=== PATIENT | male | born 1940 | race Caucasian/White ===

== ENCOUNTER 2017-07-06 13:39 | Inpatient (IN) ==
[2017-07-06] MEDS ORDERED: ACETAMINOPHEN 325 MG TABLET PO PRN (15:03)
[2017-07-06] MEDS ORDERED: ONDANSETRON 4 MG/2 ML VIAL IV PRN (15:03)
[2017-07-06] MEDS ORDERED: DEXTROSE 50% 25 GM/50 ML VIAL IV PRN (15:06)
[2017-07-06] MEDS ORDERED: GLUCAGON 1 MG VIAL IM PRN (15:06)
[2017-07-06] MEDS ORDERED: ENOXAPARIN 40 MG/0.4 ML SYRINGE SUBCUT SCH (17:30)
[2017-07-06] MEDS: INSULIN LISPRO 100 UNIT/ML SUBCUT SCH (18:48)
[2017-07-06] MEDS: FUROSEMIDE 20 MG/2 ML VIAL IV SCH (18:50)
[2017-07-06] MEDS ORDERED: hydrALAZINE 20 MG/1 ML VIAL IV PRN (19:19)
[2017-07-06] MEDS ORDERED: ALBUTEROL/IPRATROPIUM 3 ML NEB RESP TX PRN (19:19)
[2017-07-06 19:36] LABS: Free T4 (Free Thyroxine) 0.98 NG/DL (0.76-1.46)
[2017-07-06 19:38] LABS: Troponin I Only 0.198 NG/ML (0.00-0.045)
[2017-07-07] MEDS: INSULIN LISPRO 100 UNIT/ML SUBCUT SCH ×5 (03:06→21:41)
[2017-07-07] MEDS: DOCUSATE SODIUM 100 MG CAPSULE PO SCH ×3 (03:06→21:41)
[2017-07-07 04:07] LABS: Basophils % 0.4 % (0.0-0.8); Eosinophils # 0.2 10*3/uL (0.0-0.87); Eosinophils % 2.7 % (0.00-10.9); Hematocrit 35.6 VOL% (42.0-52.0); Hemoglobin 12.5 GM/DL (14.0-18.0); Immature Granulocytes % 0.4 %; Immature Granulocytes Absolute 0.03 #; Lymphocytes # 1.9 10*3/uL (1.4-4.0); Lymphocytes % 25.5 % (21.2-54.2); Mean Corpuscular HGB Conc 35.1 GM/DL (32-36); Mean Corpuscular Hemoglobin 29 PG (27-34); Mean Corpuscular Volume 81.7 FL (87-102); Mean Platelet Volume 9.7 FL (9.6-12.0); Monocytes # 0.7 10*3/uL (0.11-0.8); Monocytes % 9.8 % (1.7-12.7); Neutrophils # 4.6 10*3/uL (1.4-7.4); Neutrophils % 61.2 % (38.7-73.9); Platelet Count 226 T/CUMM (130-400); Red Blood Count 4.36 MC/CUMM (3.8-5.5); Red Cell Distribution Width 12.6 % (9.3-17.3); White Blood Count 7.5 T/CUMM (4-12)
[2017-07-07 04:37] LABS: Calcium 8.3 MG/DL (8.5-10.1); Potassium 4.1 MMOL/L (3.5-5.1); Risk Ratio 2.32
[2017-07-07] MEDS: FUROSEMIDE 20 MG/2 ML VIAL IV SCH ×2 (08:25→16:55)
[2017-07-07] MEDS ORDERED: LOSARTAN 50 MG TABLET PO SCH (09:00)
[2017-07-07] MEDS ORDERED: CLOPIDOGREL 75 MG TABLET PO SCH (09:00)
[2017-07-07] MEDS ORDERED: POTASSIUM CHLORIDE RIDER 10 MEQ in PREMIX 1 EACH IV PRN (09:11)
[2017-07-07] MEDS ORDERED: DIAZEPAM 5 MG TABLET PO ONE (09:13)
[2017-07-07] MEDS ORDERED: ASPIRIN 325 MG TABLET PO ONE (09:13)
[2017-07-07] MEDS ORDERED: diphenhydrAMINE CAP 25 MG CAPSULE PO ONE (09:13)
[2017-07-07] MEDS ORDERED: MAGNESIUM SULF RIDER 2 GM in PREMIX 1 EACH IV PRN (09:13)
[2017-07-07] MEDS ORDERED: SODIUM CHLORIDE 0.9% 1,000 ML IV SCH (09:30)
[2017-07-07] MEDS ORDERED: METOPROLOL TARTRATE 25 MG TABLET PO SCH (10:00)
[2017-07-07] MEDS: ASPIRIN CHEW 81 MG TABLET PO SCH (12:34)
[2017-07-07] MEDS: PANTOPRAZOLE 40 MG TABLET PO SCH (12:35)
[2017-07-07] MEDS ORDERED: MIDAZOLAM 2 MG/2 ML VIAL ONE (13:15)
[2017-07-07] MEDS ORDERED: MEPERIDINE 25 MG/1 ML VIAL ONE (13:15)
[2017-07-07] MEDS ORDERED: HEPARIN 5,000 UNIT/1 ML VIAL ONE (14:02)
[2017-07-07] MEDS ORDERED: LIDOCAINE 1% 20 ML VIAL ONE (14:32)
[2017-07-07] MEDS: TAMSULOSIN 0.4 MG CAPSULE PO SCH (15:47)
[2017-07-07] MEDS: DONEPEZIL 10 MG TABLET PO SCH (15:47)
[2017-07-07] MEDS: ROSUVASTATIN 10 MG TABLET PO SCH (15:47)
[2017-07-07] MEDS: MEMANTINE 10 MG TABLET PO SCH ×2 (15:47→21:38)
[2017-07-07] MEDS: LOSARTAN 50 MG TABLET PO SCH (21:37)
[2017-07-07] MEDS: CARVEDILOL 3.125 MG TABLET PO SCH (21:37)
[2017-07-08 05:02] LABS: Basophils % 0.2 % (0.0-0.8); Eosinophils # 0.2 10*3/uL (0.0-0.87); Eosinophils % 2.5 % (0.00-10.9); Hemoglobin 13.4 GM/DL (14.0-18.0); Immature Granulocytes % 0.4 %; Immature Granulocytes Absolute 0.03 #; Lymphocytes # 1.7 10*3/uL (1.4-4.0); Mean Corpuscular HGB Conc 35.3 GM/DL (32-36); Mean Corpuscular Hemoglobin 29 PG (27-34); Mean Corpuscular Volume 83.2 FL (87-102); Mean Platelet Volume 9.3 FL (9.6-12.0); Monocytes # 0.9 10*3/uL (0.11-0.8); Monocytes % 10.6 % (1.7-12.7); Neutrophils # 5.2 10*3/uL (1.4-7.4); Neutrophils % 65.3 % (38.7-73.9); Platelet Count 225 T/CUMM (130-400); Red Blood Count 4.57 MC/CUMM (3.8-5.5); Red Cell Distribution Width 12.7 % (9.3-17.3)
[2017-07-08 05:35] LABS: Calcium 8.1 MG/DL (8.5-10.1); Calcium 8.3 MG/DL (8.5-10.1); Osmolality,Calculated 277.7 MOS/KG (273-304); Osmolality,Calculated 279.7 MOS/KG (273-304); Potassium 3.9 MMOL/L (3.5-5.1)
[2017-07-08] MEDS: LOSARTAN 50 MG TABLET PO SCH (08:52)
[2017-07-08] MEDS: ASPIRIN CHEW 81 MG TABLET PO SCH (08:53)
[2017-07-08] MEDS: MEMANTINE 10 MG TABLET PO SCH (08:54)
[2017-07-08] MEDS: DOCUSATE SODIUM 100 MG CAPSULE PO SCH (08:54)
[2017-07-08] MEDS ORDERED: FUROSEMIDE 20 MG TABLET PO SCH (09:00)
[2017-07-08] MEDS: ROSUVASTATIN 10 MG TABLET PO SCH (09:02)
[2017-07-08] MEDS: DONEPEZIL 10 MG TABLET PO SCH (09:02)
[2017-07-08] MEDS: PANTOPRAZOLE 40 MG TABLET PO SCH (09:02)
[2017-07-08] MEDS: TAMSULOSIN 0.4 MG CAPSULE PO SCH (09:05)
[2017-07-08] MEDS: INSULIN LISPRO 100 UNIT/ML SUBCUT SCH ×2 (09:46→11:51)
[2017-07-08] MEDS: CARVEDILOL 3.125 MG TABLET PO SCH (09:47)
[2017-07-08] MEDS: FUROSEMIDE 20 MG/2 ML VIAL IV SCH (09:48)
[2017-07-08 11:30] VITALS: BP 131/70
[2017-07-08] MEDS ORDERED: ENOXAPARIN 80 MG/0.8 ML SYRINGE SUBCUT SCH (11:30)
[2017-07-08] MEDS ORDERED: ENOXAPARIN 40 MG/0.4 ML SYRINGE SUBCUT SCH (12:00)
[2017-07-08] MEDS ORDERED: SPIRONOLACTONE 25 MG TABLET PO SCH (12:00)
[2017-07-09] MEDS ORDERED: FUROSEMIDE 40 MG TABLET PO SCH (09:00)
== END 2017-07-08 14:32 | disposition home or self-care (01) | DRG 286 ==
LOC: N.TELEN
PROVIDERS: ADMIT Family Medicine; ATTEND Family Medicine

== ENCOUNTER 2017-07-14 05:32 | Inpatient (IN) ==
[2017-07-13 10:56] LABS: Basophils % 0.5 % (0.0-0.8); Eosinophils # 0.1 10*3/uL (0.0-0.87); Eosinophils % 1.5 % (0.00-10.9); Hematocrit 36.2 VOL% (42.0-52.0); Hemoglobin 12.6 GM/DL (14.0-18.0); Immature Granulocytes % 0.3 %; Immature Granulocytes Absolute 0.02 #; Lymphocytes # 1.6 10*3/uL (1.4-4.0); Lymphocytes % 24.3 % (21.2-54.2); Mean Corpuscular HGB Conc 34.8 GM/DL (32-36); Mean Corpuscular Hemoglobin 29 PG (27-34); Mean Corpuscular Volume 83.6 FL (87-102); Mean Platelet Volume 9.3 FL (9.6-12.0); Monocytes # 0.6 10*3/uL (0.11-0.8); Monocytes % 9.4 % (1.7-12.7); Neutrophils # 4.1 10*3/uL (1.4-7.4); Platelet Count 231 T/CUMM (130-400); Red Blood Count 4.33 MC/CUMM (3.8-5.5); Red Cell Distribution Width 12.5 % (9.3-17.3); White Blood Count 6.5 T/CUMM (4-12)
[2017-07-13 11:06] LABS: PT Patient Result 10.9 SECS; Partial Thromboplastin Time 26.3 SECS (0-40)
[2017-07-13 11:22] LABS: Calcium 8.7 MG/DL (8.5-10.1); Osmolality,Calculated 267.7 MOS/KG (273-304); Potassium 4.8 MMOL/L (3.5-5.1)
[2017-07-13 11:30] LABS: Apearance,Urine CLEAR (Clear); Bilirubin,Urine Negative (Negative); Blood, Urine Negative (Negative); Glucose,Urine (UA) Negative (Negative); Ketones,Urine Negative (Negative); Mucus,Urine Occasional /LPF (Occasional); Nitrite,Urine Negative (Negative); Protein,Urine Negative; RBC,Urine <1 /HPF (0-4); Urine Color Straw (Yellow); Urine Specific Gravity 1.004 (1.001-1.035); Urine Urobilinogen < 2.0 EU/DL (0.2-1.0); WBC,Urine <1 /HPF (0-6)
[~2017-07-14 05:32] MED LIST: DIAZEPAM 2 MG TABLET PO ONE; FAMOTIDINE 20 MG TABLET PO ONE; PAPAVERINE 60 MG/2 ML VIAL ONE; SODIUM CHLORIDE 0.9% 1,000 ML IV PRN; TISSUE ADHESIVE 1 EACH APPLICATOR TOP ONE; VANCOMYCIN 1,000 MG VIAL ONE
[2017-07-14] MEDS ORDERED: DIAZEPAM 2 MG TABLET ONE (06:42)
[2017-07-14] MEDS ORDERED: FAMOTIDINE 20 MG TABLET ONE (06:43)
[2017-07-14] MEDS ORDERED: LACTATED RINGERS 1,000 ML IV SCH (07:00)
[2017-07-14] MEDS ORDERED: CEFUROXIME 1,500 MG VIAL ONE (07:09)
[2017-07-14] MEDS ORDERED: CEFUROXIME INJ 1,500 MG in SYRINGE 1 EACH IV ONE (07:12)
[2017-07-14 07:56] LABS: ABG Base Excess 1.5 MMOL/L (-2.5-2.5); ABG HCO3 25.8 MMOL/L (20-26); ABG PCO2 31.5 MM HG (35-48); ABG PH 7.494 (7.35-7.45); ABG TCO2 21.7 MMOL/L (23-27); Glucose Heart Surgery 142 MG/DL (74-106); Hematocrit Heart Surgery 33.3 PERCENT (42-52); Hemoglobin Heart Surgery 10.8 G/DL (14.0-18.0); PCO2 Patient Temp Arterial 31.5 MMHG; PH Patient Temp Arterial 7.494; Patient Temperature 37 CELCIUS; Potassium Heart/CVR 4.3 MMOL/L (3.5-5.1); Sodium Heart/CVR 133 MMOL/L (135-145)
[2017-07-14 08:04] LABS: Apearance,Urine CLEAR (Clear); Bilirubin,Urine Negative (Negative); Blood, Urine Negative (Negative); Glucose,Urine (UA) Negative (Negative); Ketones,Urine 20 mg/dL (Negative); Nitrite,Urine Negative (Negative); Protein,Urine Negative; RBC,Urine 1 /HPF (0-4); Squamous Epithelial Cell,Urine Occasional /HPF (0-10); Urine Color Yellow (Yellow); Urine Specific Gravity 1.014 (1.001-1.035); Urine Urobilinogen < 2.0 EU/DL (0.2-1.0); WBC,Urine <1 /HPF (0-6)
[2017-07-14] MEDS ORDERED: PHENYLEPHRINE DRIP 40 MG/250 ML PREMIX IV ONE (09:09)
[2017-07-14 09:50] LABS: Hemoglobin Heart Surgery 7.4 G/DL (14.0-18.0); PCO2 Patient Temp Venous 29.4 MM HG; PH Patient Temp Venous 7.514; PO2 Patient Temp Venous 42.1 MM HG; Potassium Heart/CVR 4.2 MMOL/L (3.5-5.1); VBG Base Excess 1.2 MEQ/L (0-4); VBG HCO3 25.3 MEQ/L (24-28); VBG Oxygen Saturation 88.4 %; VBG PCO2 33.9 MMHG (41-51); VBG PH 7.469; VBG PO2 51.6 MMHG (17-40)
[2017-07-14 10:19] LABS: Hematocrit Heart Surgery 24.3 PERCENT (42-52); Hemoglobin Heart Surgery 7.8 G/DL (14.0-18.0); PCO2 Patient Temp Venous 26.7 MM HG; PH Patient Temp Venous 7.545; PO2 Patient Temp Venous 39.6 MM HG; Potassium Heart/CVR 4.2 MMOL/L (3.5-5.1); VBG Base Excess 1.3 MEQ/L (0-4); VBG HCO3 25.4 MEQ/L (24-28); VBG Oxygen Saturation 89.2 %; VBG PCO2 32.5 MMHG (41-51); VBG PH 7.485; VBG PO2 51.9 MMHG (17-40)
[2017-07-14] MEDS ORDERED: THROMBIN TOPICAL (RECOMBINANT) 5,000 UNIT VIAL TOP ONE (10:44)
[2017-07-14 11:00] LABS: Hematocrit Heart Surgery 24.6 PERCENT (42-52); Hemoglobin Heart Surgery 7.9 G/DL (14.0-18.0); PCO2 Patient Temp Venous 36.7 MM HG; PH Patient Temp Venous 7.431; PO2 Patient Temp Venous 39.3 MM HG; VBG Base Excess 0.3 MEQ/L (0-4); VBG HCO3 24.4 MEQ/L (24-28); VBG Oxygen Saturation 74.3 %; VBG PCO2 36.7 MMHG (41-51); VBG PH 7.431; VBG PO2 39.3 MMHG (17-40)
[2017-07-14] MEDS ORDERED: ALBUMIN 25% 25 GM/100 ML VIAL IV ONE (11:23)
[2017-07-14] MEDS ORDERED: SODIUM BICARBONATE 50 MEQ/50 ML SYRINGE IV ONE (11:23)
[2017-07-14] MEDS ORDERED: DEXTROSE 5% KCL 20 MEQ 20 MEQ/1,000 ML BAG IV ONE (11:23)
[2017-07-14] MEDS ORDERED: MANNITOL 12.5 GM/50 ML VIAL IV ONE (11:24)
[2017-07-14] MEDS ORDERED: PROTAMINE SULFATE 250 MG/25 ML VIAL IV ONE (11:24)
[2017-07-14] MEDS ORDERED: HEPARIN 10,000 UNIT/10 ML VIAL ONE (11:24)
[2017-07-14] MEDS ORDERED: FUROSEMIDE 20 MG/2 ML VIAL ONE (11:24)
[2017-07-14] MEDS ORDERED: MAGNESIUM SULFATE 1 GM/2 ML VIAL ONE (11:24)
[2017-07-14] MEDS ORDERED: methylPREDNISolone SOD SUC 1,000 MG/8 ML VIAL ONE (11:24)
[2017-07-14 11:29] LABS: ABG Base Excess -5.1 MMOL/L (-2.5-2.5); ABG HCO3 20.2 MMOL/L (20-26); ABG PCO2 36.9 MM HG (35-48); ABG PH 7.343 (7.35-7.45); ABG TCO2 18.8 MMOL/L (23-27); Glucose Heart Surgery 358 MG/DL (74-106); Hematocrit Heart Surgery 25.5 PERCENT (42-52); Hemoglobin Heart Surgery 8.2 G/DL (14.0-18.0); Ionized Calcium Arterial 1.57 MMOL/L (1.21-1.46); PCO2 Patient Temp Arterial 36.9 MMHG; PH Patient Temp Arterial 7.343; Patient Temperature 37 CELCIUS; Potassium Heart/CVR 4.4 MMOL/L (3.5-5.1); Sodium Heart/CVR 129 MMOL/L (135-145)
[2017-07-14] MEDS ORDERED: TISSUE ADHESIVE 1 EACH APPLICATOR TOP ONE (11:57)
[2017-07-14] MEDS ORDERED: EPINEPHrine 1 MG/ML VIAL ONE ×2 (12:00→13:09)
[2017-07-14] MEDS ORDERED: CHLORHEXIDINE 4% SOLN 118 ML BOTTLE TOP PRN (12:13)
[2017-07-14] MEDS ORDERED: SODIUM CHLORIDE 0.9% 250 ML IV PRN (12:13)
[2017-07-14] MEDS ORDERED: MAGNESIUM SULF RIDER 2 GM in PREMIX 1 EACH IV PRN (12:13)
[2017-07-14] MEDS ORDERED: CALCIUM CHLORIDE 1,000 MG/10 ML SYRINGE IV PRN (12:13)
[2017-07-14] MEDS ORDERED: DEXTROSE 50% 25 GM/50 ML VIAL IV PRN ×2 (12:13)
[2017-07-14] MEDS ORDERED: MAGNESIUM SULF RIDER 4 GM in PREMIX 1 EACH IV PRN (12:13)
[2017-07-14] MEDS ORDERED: ONDANSETRON 4 MG/2 ML VIAL IV PRN (12:13)
[2017-07-14] MEDS ORDERED: MIDAZOLAM 2 MG/2 ML VIAL IV PRN (12:13)
[2017-07-14] MEDS ORDERED: MORPHINE 2 MG/1 ML SYRINGE IV PRN (12:13)
[2017-07-14] MEDS ORDERED: MORPHINE 10 MG/1 ML VIAL IV PRN (12:13)
[2017-07-14] MEDS ORDERED: POTASSIUM CHLORIDE RIDER 10 MEQ in PREMIX 1 EACH IV PRN (12:13)
[2017-07-14] MEDS ORDERED: ACETAMINOPHEN 650 MG SUPP RECTAL PRN (12:13)
[2017-07-14] MEDS: SODIUM CHLORIDE 0.45% 1,000 ML IV SCH ×2 (12:30→18:30)
[2017-07-14] MEDS ORDERED: SODIUM CHLORIDE 0.45% 1,000 ML IV SCH (12:30)
[2017-07-14] MEDS ORDERED: INSULIN REGULAR DRIP 100 ML IV SCH (12:30)
[2017-07-14 13:00] LABS: ABG Base Excess -1.5 MMOL/L (-2.5-2.5); ABG HCO3 23.1 MMOL/L (20-26); ABG Oxygen Saturation 95.4 % (95-100); ABG PCO2 39.9 MM HG (35-48); ABG PH 7.378 (7.35-7.45); ABG PO2 77.2 MM HG (80-95); ABG TCO2 21.6 MMOL/L (23-27); Glucose Heart Surgery 246 MG/DL (74-106); Hematocrit Heart Surgery 28.5 PERCENT (42-52); Hemoglobin Heart Surgery 9.2 G/DL (14.0-18.0); Potassium Heart/CVR 3.9 MMOL/L (3.5-5.1)
[2017-07-14 13:03] LABS: Basophils % 0.2 % (0.0-0.8); Eosinophils % 0.1 % (0.00-10.9); Hematocrit 26.1 VOL% (42.0-52.0); Hemoglobin 9.3 GM/DL (14.0-18.0); Immature Granulocytes % 0.8 %; Lymphocytes # 0.4 10*3/uL (1.4-4.0); Lymphocytes % 3.1 % (21.2-54.2); Mean Corpuscular HGB Conc 35.6 GM/DL (32-36); Mean Corpuscular Hemoglobin 30 PG (27-34); Mean Corpuscular Volume 84.2 FL (87-102); Mean Platelet Volume 9.5 FL (9.6-12.0); Monocytes # 0.6 10*3/uL (0.11-0.8); Monocytes % 4.3 % (1.7-12.7); Neutrophils # 11.7 10*3/uL (1.4-7.4); Neutrophils % 91.5 % (38.7-73.9); Platelet Count 176 T/CUMM (130-400); Red Cell Distribution Width 12.8 % (9.3-17.3); White Blood Count 12.8 T/CUMM (4-12)
[2017-07-14] MEDS ORDERED: MIDAZOLAM 10 MG/2 ML VIAL ONE (13:03)
[2017-07-14] MEDS ORDERED: SEVOFLURANE 1 UNIT/15 MINUTE INH ONE (13:03)
[2017-07-14] MEDS ORDERED: SODIUM CHLORIDE 0.9% 250 ML IV ONE (13:05)
[2017-07-14] MEDS ORDERED: SODIUM CHLORIDE 0.9% 1,000 ML IV ONE (13:05)
[2017-07-14] MEDS ORDERED: PHENYLEPHRINE 10 MG/1 ML VIAL IV ONE (13:05)
[2017-07-14] MEDS ORDERED: SODIUM CHLORIDE 0.9% 100 ML IV ONE (13:05)
[2017-07-14] MEDS ORDERED: NITROGLYCERIN DRIP 50 MG/250 ML BOTTLE IV ONE (13:05)
[2017-07-14] MEDS ORDERED: CALCIUM CHLORIDE 1,000 MG/10 ML VIAL IV ONE (13:07)
[2017-07-14] MEDS ORDERED: ONDANSETRON 4 MG/2 ML VIAL ONE (13:07)
[2017-07-14] MEDS ORDERED: DEXAMETHASONE 10 MG/1 ML VIAL ONE (13:07)
[2017-07-14] MEDS ORDERED: ePHEDrine 50 MG/ML AMP ONE (13:07)
[2017-07-14] MEDS ORDERED: ETOMIDATE 40 MG/20 ML VIAL IV ONE (13:07)
[2017-07-14] MEDS ORDERED: ROCURONIUM 100 MG/10 ML VIAL IV ONE (13:08)
[2017-07-14] MEDS ORDERED: TRANEXAMIC ACID 1,000 MG/10 ML VIAL IV ONE (13:09)
[2017-07-14 13:10] LABS: INR 1.2; PT Patient Result 12.4 SECS; Partial Thromboplastin Time 30.2 SECS (0-40)
[2017-07-14] MEDS ORDERED: SODIUM CHLORIDE 0.9% 2,000 ML IV ONE (13:10)
[2017-07-14] MEDS ORDERED: HEPARIN/NACL 0.9% 2 UNITS/ML 500 ML IV ONE (13:17)
[2017-07-14 13:26] LABS: Lactic Acid 4.5 MMOL/L (0.4-2.0)
[2017-07-14 13:33] LABS: Blood Urea Nitrogen 22 MG/DL (7-18); Calcium 9.7 MG/DL (8.5-10.1); Glucose 248 MG/DL (74-106); Osmolality,Calculated 280.1 MOS/KG (273-304); Sodium 135 MMOL/L (136-145)
[2017-07-14 14:00] LABS: Lymphocytes 7 % (20-55); Segmented Neutrophils 92 % (50-85); Total Cells Counted 100
[2017-07-14 14:02] LABS: Platelet Estimate Adequate
[2017-07-14 14:03] LABS: Rouleau Slight
[2017-07-14 14:04] LABS: Hypochromasia 1+
[2017-07-14 14:05] LABS: Anisocytosis Slight; Ovalocytes Slight
[2017-07-14] MEDS: POTASSIUM CHLORIDE RIDER 20 MEQ in PREMIX 1 EACH IV PRN ×2 (14:08→16:00)
[2017-07-14 15:52] LABS: ABG Base Excess 0.9 MMOL/L (-2.5-2.5); ABG HCO3 25.2 MMOL/L (20-26); ABG Oxygen Saturation 98.5 % (95-100); ABG PCO2 36.6 MM HG (35-48); ABG PH 7.439 (7.35-7.45); ABG TCO2 22.6 MMOL/L (23-27); Glucose Heart Surgery 191 MG/DL (74-106); Hematocrit Heart Surgery 29.8 PERCENT (42-52); Hemoglobin Heart Surgery 9.6 G/DL (14.0-18.0); Potassium Heart/CVR 3.3 MMOL/L (3.5-5.1)
[2017-07-14] MEDS: ALBUMIN 5% 12.5 GM in PREMIX 1 EACH IV PRN ×2 (17:29→17:44)
[2017-07-14] MEDS: INSULIN REGULAR 100 UNIT/ML IV PRN (20:11)
[2017-07-14] MEDS: CHLORHEXIDINE 0.12% ORAL RINSE 60 ML BOTTLE SWISH/SPIT SCH (21:10)
[2017-07-14] MEDS: CEFUROXIME INJ 1,500 MG in SYRINGE 1 EACH IV SCH (21:10)
[2017-07-15] MEDS: SODIUM CHLORIDE 0.45% 1,000 ML IV SCH ×3 (02:49→09:09)
[2017-07-15 04:14] LABS: Basophils % 0.1 % (0.0-0.8); Hematocrit 21.6 VOL% (42.0-52.0); Hemoglobin 7.5 GM/DL (14.0-18.0); Immature Granulocytes % 0.4 %; Immature Granulocytes Absolute 0.08 #; Lymphocytes # 0.6 10*3/uL (1.4-4.0); Lymphocytes % 3.5 % (21.2-54.2); Mean Corpuscular HGB Conc 34.7 GM/DL (32-36); Mean Corpuscular Hemoglobin 29 PG (27-34); Mean Corpuscular Volume 83.7 FL (87-102); Mean Platelet Volume 9.8 FL (9.6-12.0); Monocytes % 5.5 % (1.7-12.7); Neutrophils # 16.6 10*3/uL (1.4-7.4); Neutrophils % 90.5 % (38.7-73.9); Platelet Count 170 T/CUMM (130-400); Red Blood Count 2.58 MC/CUMM (3.8-5.5); Red Cell Distribution Width 12.8 % (9.3-17.3); White Blood Count 18.3 T/CUMM (4-12)
[2017-07-15 04:40] LABS: Osmolality,Calculated 278.7 MOS/KG (273-304); Potassium 4.5 MMOL/L (3.5-5.1)
[2017-07-15 04:45] LABS: Band Neutrophils 4 % (0-10); Giant Platelets Few; Hypochromasia 1+; Lymphocytes 4 % (20-55); Platelet Estimate Normal; Segmented Neutrophils 88 % (50-85); Total Cells Counted 100
[2017-07-15] MEDS: INSULIN REGULAR 100 UNIT/ML IV PRN (05:07)
[2017-07-15] MEDS ORDERED: ASPIRIN EC 325 MG TABLET PO SCH (09:00)
[2017-07-15] MEDS ORDERED: FUROSEMIDE 40 MG TABLET PO SCH (09:00)
[2017-07-15] MEDS: CEFUROXIME INJ 1,500 MG in SYRINGE 1 EACH IV SCH (09:09)
[2017-07-15] MEDS: CHLORHEXIDINE 0.12% ORAL RINSE 60 ML BOTTLE SWISH/SPIT SCH (09:10)
[2017-07-15] MEDS ORDERED: METOPROLOL TARTRATE 25 MG TABLET PO SCH (09:30)
[2017-07-15] MEDS ORDERED: FUROSEMIDE 40 MG/4 ML VIAL IV ONE (09:33)
[2017-07-15] MEDS ORDERED: METOPROLOL SUCCINATE XL 25 MG TABLET PO SCH (10:00)
[2017-07-15] MEDS ORDERED: ASPIRIN 325 MG TABLET PO SCH (10:00)
[2017-07-15 11:30] VITALS: BP 88/39
[2017-07-15] MEDS ORDERED: ALBUMIN 5% 12.5 GM/250 ML VIAL IV ONE (11:58)
[2017-07-15] MEDS ORDERED: SODIUM CHLORIDE 0.9% 1,000 ML IV PRN (11:59)
[2017-07-15] MEDS ORDERED: ROCURONIUM 100 MG/10 ML VIAL IV ONE (12:00)
[2017-07-15] MEDS ORDERED: ETOMIDATE 20 MG/10 ML VIAL IV ONE (12:00)
[2017-07-15] MEDS ORDERED: LEVALBUTEROL 1.25 MG/3 ML NEB RESP TX ONE (12:21)
[2017-07-15 12:32] LABS: ABG Base Excess -14.5 MMOL/L (-2.5-2.5); ABG Oxygen Saturation 94.7 % (95-100); ABG PCO2 24.8 MM HG (35-48); ABG PH 7.264 (7.35-7.45); ABG PO2 90.1 MM HG (80-95); ABG TCO2 11.7 MMOL/L (23-27)
[2017-07-15] MEDS ORDERED: PAPAVERINE 60 MG/2 ML VIAL ONE (12:33)
[2017-07-15] MEDS ORDERED: VANCOMYCIN 1,000 MG VIAL ONE (12:34)
[2017-07-15] MEDS ORDERED: TISSUE ADHESIVE 1 EACH APPLICATOR TOP ONE (12:34)
[2017-07-15 13:28] LABS: ABG Base Excess -13.6 MMOL/L (-2.5-2.5); ABG HCO3 13.5 MMOL/L (20-26); ABG Oxygen Saturation 84.2 % (95-100); ABG PO2 68.5 MM HG (80-95); Glucose Heart Surgery 165 MG/DL (74-106); Hematocrit Heart Surgery 18.6 PERCENT (42-52); Ionized Calcium Arterial 1.19 MMOL/L (1.21-1.46); PCO2 Patient Temp Arterial 74.1 MMHG; PH Patient Temp Arterial 6.981; PO2 Patient Temp Arterial 68.5 MM HG; Patient Temperature 37 CELCIUS; Potassium Heart/CVR 5.3 MMOL/L (3.5-5.1); Sodium Heart/CVR 142 MMOL/L (135-145)
[2017-07-15 13:29] LABS: ABG PCO2 74.1 MM HG (35-48); ABG PH 6.981 (7.35-7.45); Hemoglobin Heart Surgery 5.9 G/DL (14.0-18.0)
[2017-07-15 13:32] LABS: PCO2 Patient Temp Venous 66.6 MM HG; PH Patient Temp Venous 7.035; PO2 Patient Temp Venous 59.2 MM HG; Potassium Heart/CVR 5.4 MMOL/L (3.5-5.1); VBG HCO3 18.3 MEQ/L (24-28); VBG Oxygen Saturation 85.2 %; VBG PCO2 75.9 MMHG (41-51); VBG PH 6.999; VBG PO2 72.4 MMHG (17-40)
[2017-07-15 13:33] LABS: Hemoglobin Heart Surgery 6.2 G/DL (14.0-18.0)
[2017-07-15 13:40] LABS: Hematocrit Heart Surgery 21.9 PERCENT (42-52); PCO2 Patient Temp Venous 47.2 MM HG; PH Patient Temp Venous 7.252; PO2 Patient Temp Venous 43.7 MM HG; Potassium Heart/CVR 3.7 MMOL/L (3.5-5.1); VBG Base Excess -6.1 MEQ/L (0-4); VBG HCO3 19.1 MEQ/L (24-28); VBG Oxygen Saturation 77.3 %; VBG PCO2 49.5 MMHG (41-51); VBG PH 7.238; VBG PO2 46.8 MMHG (17-40)
[2017-07-15] MEDS ORDERED: SODIUM BICARBONATE 50 MEQ/50 ML SYRINGE IV ONE ×2 (13:44→15:23)
[2017-07-15] MEDS ORDERED: TRANEXAMIC ACID 1,000 MG/10 ML VIAL IV ONE (13:54)
[2017-07-15 13:55] LABS: Hematocrit Heart Surgery 30.1 PERCENT (42-52); Hemoglobin Heart Surgery 9.7 G/DL (14.0-18.0); PCO2 Patient Temp Venous 40.5 MM HG; PH Patient Temp Venous 7.33; PO2 Patient Temp Venous 43.4 MM HG; Potassium Heart/CVR 4.3 MMOL/L (3.5-5.1); VBG Base Excess -4.3 MEQ/L (0-4); VBG HCO3 20.6 MEQ/L (24-28); VBG Oxygen Saturation 79.8 %; VBG PCO2 40.5 MMHG (41-51); VBG PH 7.33; VBG PO2 43.4 MMHG (17-40)
[2017-07-15] MEDS ORDERED: DOBUTamine 500 MG/250 ML PREMIX IV ONE (13:58)
[2017-07-15 14:20] LABS: PCO2 Patient Temp Venous 37.7 MM HG; PH Patient Temp Venous 7.381; PO2 Patient Temp Venous 33.1 MM HG; Potassium Heart/CVR 4.9 MMOL/L (3.5-5.1); VBG Base Excess -2.4 MEQ/L (0-4); VBG Oxygen Saturation 65.7 %; VBG PCO2 37.7 MMHG (41-51); VBG PH 7.381; VBG PO2 33.1 MMHG (17-40)
[2017-07-15] MEDS ORDERED: HEPARIN/NACL 0.9% 2 UNITS/ML 500 ML IV ONE ×2 (15:23→16:00)
[2017-07-15] MEDS ORDERED: DEXTROSE 5% KCL 20 MEQ 20 MEQ/1,000 ML BAG IV ONE (15:23)
[2017-07-15] MEDS ORDERED: MAGNESIUM SULFATE 1 GM/2 ML VIAL ONE (15:23)
[2017-07-15] MEDS ORDERED: ALBUMIN 25% 25 GM/100 ML VIAL IV ONE (15:23)
[2017-07-15] MEDS ORDERED: methylPREDNISolone SOD SUC 1,000 MG/8 ML VIAL ONE (15:23)
[2017-07-15] MEDS ORDERED: HEPARIN 10,000 UNIT/10 ML VIAL ONE (15:23)
[2017-07-15] MEDS ORDERED: PROTAMINE SULFATE 250 MG/25 ML VIAL IV ONE (15:23)
[2017-07-15] MEDS ORDERED: FUROSEMIDE 20 MG/2 ML VIAL ONE (15:24)
[2017-07-15] MEDS ORDERED: MANNITOL 12.5 GM/50 ML VIAL IV ONE (15:24)
[2017-07-15] MEDS ORDERED: PHENYLEPHRINE 1 MG/10 ML SYRINGE IV ONE (15:24)
[2017-07-15] MEDS ORDERED: EPINEPHrine 1 MG/ML VIAL ONE (15:37)
[2017-07-15] MEDS ORDERED: MIDAZOLAM 10 MG/2 ML VIAL ONE (15:37)
[2017-07-15] MEDS ORDERED: SUFentanil 250 MCG/5 ML AMP ONE (15:37)
[2017-07-15] MEDS ORDERED: VECURONIUM 10 MG VIAL IV ONE (15:37)
[2017-07-15] MEDS ORDERED: CALCIUM CHLORIDE 1,000 MG/10 ML VIAL IV ONE (15:37)
[2017-07-15] MEDS ORDERED: PHENYLEPHRINE 10 MG/1 ML VIAL IV ONE (15:38)
[2017-07-15] MEDS ORDERED: SODIUM CHLORIDE 0.9% 1,000 ML IV ONE (15:38)
[2017-07-15] MEDS ORDERED: ESMOLOL 100 MG/10 ML VIAL IV ONE (15:38)
[2017-07-15] MEDS ORDERED: LACTATED RINGERS 1,000 ML IV ONE (15:38)
[2017-07-15] MEDS ORDERED: SODIUM CHLORIDE 0.9% 750 ML IV ONE (15:38)
[2017-07-15] MEDS ORDERED: MEMANTINE 10 MG TABLET PO SCH (21:00)
[2017-07-15] MEDS ORDERED: ATORVASTATIN 40 MG TABLET PO SCH (21:00)
[2017-07-15] MEDS ORDERED: DONEPEZIL 10 MG TABLET PO SCH (21:00)
[2017-07-16] MEDS ORDERED: SPIRONOLACTONE 25 MG TABLET PO SCH (09:00)
[2017-07-16] MEDS ORDERED: CLOPIDOGREL 75 MG TABLET PO SCH (09:00)
== END 2017-07-15 15:18 | disposition expired | DRG 235 ==
LOC: SUPCPDRO 05:32 → N.SDSINP 05:32 → N.CVR 10:43 → N.ICU 19:58 → N.TELES 07-15 10:37 → N.ICU 07-15 12:38 → N.CVR 07-15 14:36
PROVIDERS: ADMIT Thoracic Surgery (Cardiothoracic Vascular Surgery); ATTEND Thoracic Surgery (Cardiothoracic Vascular Surgery)